=== PATIENT | female | born 1970 | race Caucasian/White ===

== ENCOUNTER 2016-07-02 13:16 | Emergency (ER) | payer MEDICAID, OTHER ==
[~2016-07-02] VITALS: Ht 152.4 cm; Wt 84.0 kg
[2016-07-02 13:32] VITALS: Ht 152.4 cm; Wt 84.0 kg
[2016-07-02] MEDS ORDERED: KETOROLAC 60 MG INJ IM STA (14:24)
--- NOTE | 2016-07-02 14:57 | ERD ---
ER Documentation Chief Complaint Date/Time DATE: 07/02/16 TIME: 14:54 Chief Complaint dizziness, nausea x 1 week; right foot pain HPI [age]-year-old female complaining of dizziness, headache, and nausea 1 week. Described dizziness as a spinning-like sensation, worse when she is trying to standing up. She had vomited once this morning. The headache is in the bilateral temporal region, sharp. Patient reports never having headache before. She has blurred vision and photophobia. Patient also reports right leg pain 1 month. Currently the pain is localized in her right knee, painful when walking. Denies falls or injuries. Patient reports the pain is gradual onset, getting worse since she has gained some weight in the last 2 years. She having trouble walking because of pain. Patient reports sensation of catching at her right knee. In addition, patient reports right calf swollen red and hot to touch at times. Denies fever or chills. Denies shortness of breath. Denies unilateral numbness or weakness. ROS All systems reviewed and are negative except as per history of present illness. Medications Home Meds Active Scripts Meclizine Hcl* (Antivert*) 12.5 Mg Tab, 12.5 MG PO Q6H Y for DIZZINESS, #20 TAB Prov:LEANDRA MCGINNIS. NUCLEAR TECHNICIAN 07/02/16 Acetaminophen* (Tylophen*) 500 Mg Capsule, 1 CAP PO Q6H Y for PAIN AND OR ELEVATED TEMP, #20 CAP Prov:LEANRDA MCGINNIS. NUCLEAR TECHNICIAN 07/02/16 Allergies Allergies: Coded Allergies: No Known Allergy (Verified Allergy, Unknown, 10/10/10) PMhx/Soc Medical and Surgical Hx: pt denies Medical Hx, pt denies Surgical Hx Hx Alcohol Use: No Hx Substance Use: No Hx Tobacco Use: No Smoking Status: Unknown if ever smoked Physical Exam Vitals Vital Signs Date Time Temp Pulse Resp B/P Pulse Ox O2 Delivery O2 Flow Rate FiO2 07/02/16 16:20 98.1 78 18 126/66 99 Room Air 07/02/16 13:32 98.8 80 18 119/60 99 Physical Exam General impression: Well-developed, well-nourished. Alert, oriented, in no acute distress Head: Normocephalic, atraumatic. Eyes: PERRL, EOM normal. Sclerae are normal. Conjunctiva not injected. Neck: Supple, nontender. No lymphadenopathy. No nuchal rigidity. Respiration: Normal respiratory effort. Lungs clear to auscultate bilaterally. No wheezes, rales or rhonchi. Cardiovascular: Regular rate and rhythm. No murmurs or extra heart sounds. Abdomen: Abdomen normal to inspection. Nontender. No masses or organomegaly. Bowel sounds normal. Back: Normal to inspection. No midline spine tenderness. No CVA tenderness. Extremities: Extremities normal to inspection, nontender. ROM normal. Neuro: Mental status normal, speech normal. MEDICAL ACCOUNTS RECEIVABLE SPECIALIST II-XII intact. Normal sensation and strength in all 4 extremities. No focal weakness noted. Skin: Normal turgor. No rash or lesions. Psych: Normal mood and affect. Results 24 hrs Current Medications Medications (Trade) Dose Ordered Sig/Peace Route PRN Reason Start Time Stop Time Status Last Admin Dose Admin Ketorolac Tromethamine (Toradol) 60 mg ONCE STAT IM 07/02/16 14:24 07/02/16 14:28 DC 07/02/16 15:27 PROCEDURE: CT Head without. CLINICAL INDICATION: Headache, dizziness. TECHNIQUE: The study was performed utilizing a multi-slice, multidetector CT scanner. Direct spiral 1 mm axial sections were obtained through the head without the use of intravenous contrast material. 1 or more of the following dose reduction techniques were utilized: Automated exposure control, adjustment of the mA and/or kV according to patient's size, iterative reconstruction technique. Coronal and sagittal reformations were obtained. The images were reviewed on a PACS workstation. RADIATION DOSE: CTDIvol: 44.3 mGy DLP: 630.2 mGy-cm COMPARISON: No prior studies are available for comparison. FINDINGS: There is no intracranial hemorrhage, extra-axial fluid collection, mass lesion, midline shift or hydrocephalus. The ventricles, sulci and cisterns are within normal limits. The white matter is unremarkable. The de santiago-white matter differentiation is preserved. The basal cisterns are patent. The midline structures are intact. The orbits, calvarium and extracranial soft tissues are normal in appearance. The visualized paranasal sinuses, mastoid air cells and middle ear cavities are normally aerated. There is pneumatization of the bilateral petrous apices without evidence of inflammatory changes, normal variant. IMPRESSION: 1. No acute intracranial abnormality. No intracranial hemorrhage, extra-axial fluid collection, mass lesion or hydrocephalous. RPTAT: DD .Du Castro MD, MD Date Time Electronically viewed and signed by .Du Castro MD, MD on 07/02/2016 15: 52 .S/ CC: LEANDRA MCGINNIS NUCLEAR TECHNICIAN PROCEDURE: Right knee x-ray CLINICAL INDICATION: right knee pain x 1 month TECHNIQUE: AP, lateral, and oblique views of the knee were obtained. COMPARISON: None FINDINGS: No acute fracture or dislocation is seen. There is normal mineralization. Mild spurring is noted at the superior pole of the patella. There is mild narrowing of the medial compartment. There is no joint effusion. There is no significant soft tissue swelling. 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 RPTAT: EE Physician Ramya Date Time Electronically viewed and signed by Physician Ramya on 07/02/2016 15:21 RA/ CC: LEANDRA MCGINNIS NUCLEAR TECHNICIAN PROCEDURE: US DVT. CLINICAL INDICATION: Right lower extremity pain. TECHNIQUE: Multiple longitudinal and transverse images of the right lower extremity veins were obtained with de asntiago scale and color Doppler imaging. 2D grayscale measurements with compression, color Doppler flow, and augmentation was performed. The calf veins were interrogated as well. COMPARISON: No prior studies are available for comparison. FINDINGS: The right common femoral, superficial femoral and popliteal veins are normally compressible throughout. Color flow demonstrates normal filling of the vessel. Normal waveforms are visualized and there is normal response to augmentation. IMPRESSION: 1. No evidence of a deep vein thrombosis involving the right lower extremity. RPTAT: [facility] Jayesh Bullock Physician Date Time Electronically viewed and signed by Jayesh Bullock Physician on 07/02/2016 15: 05 JH/ CC: LEANDRA MCGINNIS NUCLEAR TECHNICIAN Procedures/MDM 45-year-old female presented ED with headache and vertigo 1 week. Patient states that this is her first ever headache. CT brain without IV contrast was obtained. CT brain was negative for any intracranial abnormalities. Toradol 60 mg IM given to the patient in the ED for pain. Patient reports improvement of headache after Toradol. Patient vertigo is likely benign positional vertigo. I doubt Mnire's disease, acoustic neuroma, vertebral artery dissection, or stroke. Patient also complaining of right knee pain 1 month and right calf erythematous and swollen at times. Doppler ultrasound of the right lower leg is negative for DVT. X-ray right knee shows mild degenerative changes, no fractures or dislocations. Patient was informed of the imaging results. Patient appears well, stable for discharge and outpatient management. Medical decision making shared with patient and family. Education provided to patient and family. Patient and family expressed understanding of the plan. Medications on discharge: Ibuprofen, meclizine. Follow-up: Primary care provider in 2-3 days or return to ED if worse. LEANDRA MCGINNIS NP Jul 02, 2016 14:57
--- NOTE | 2016-07-02 15:06 | RADRPT ---
PROCEDURE: US DVT. CLINICAL INDICATION: Right lower extremity pain. TECHNIQUE: Multiple longitudinal and transverse images of the right lower extremity veins were obt ained with de santiago scale and color Doppler imaging. 2D grayscale measurements with compression, color Doppler flow, and augmentation was performed. The calf veins were interrogated as well. COMPARISON: No prior studies are available for comparison. FINDINGS: The right common femoral, superficial femoral and popliteal veins are normally compressible througho ut. Color flow demonstrates normal filling of the vessel. Normal waveforms are visualized and ther e is normal response to augmentation. IMPRESSION: 1. No evidence of a deep vein thrombosis involving the right lower extremity. RPTAT: [facility] Physician Jose D Date Time Electronically viewed and signed by Physician Jose D on 07/02/2016 15:05 /
--- NOTE | 2016-07-02 15:22 | RADRPT ---
PROCEDURE: Right knee x-ray CLINICAL INDICATION: right knee pain x 1 month TECHNIQUE: AP, lateral, and oblique views of the knee were obtained. COMPARISON: None FINDINGS: No acute fracture or dislocation is seen. There is normal mineralization. Mild spurring is noted at the superior pole of the patella. There is mild narrowing of the medial c ompartment. There is no joint effusion. There is no significant soft tissue swelling. 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 RPTAT: EE Physician Ramya Date Time Electronically viewed and signed by Sherman Morris Physician on 07/02/2016 15:21 /
--- NOTE | 2016-07-02 15:52 | RADRPT ---
PROCEDURE: CT Head without. CLINICAL INDICATION: Headache, dizziness. TECHNIQUE: The study was performed utilizing a multi-slice, multidetector CT scanner. Direct spira l 1 mm axial sections were obtained through the head without the use of intravenous contrast materia l. 1 or more of the following dose reduction techniques were utilized: Automated exposure control, adjustment of the mA and/or kV according to patient's size, iterative reconstruction technique. Co howard and sagittal reformations were obtained. The images were reviewed on a PACS workstation. RADIATION DOSE: CTDIvol: 44.3 mGyDLP: 630.2 mGy-cm COMPARISON: No prior studies are available for comparison. FINDINGS: There is no intracranial hemorrhage, extra-axial fluid collection, mass lesion, midline shift or hyd rocephalus. The ventricles, sulci and cisterns are within normal limits. The white matter is unrem arkable. The de santiago-white matter differentiation is preserved. The basal cisterns are patent. The m idline structures are intact. The orbits, calvarium and extracranial soft tissues are normal in pierre earance. The visualized paranasal sinuses, mastoid air cells and middle ear cavities are normally ae rated. There is pneumatization of the bilateral petrous apices without evidence of inflammatory maki ges, normal variant. IMPRESSION: 1. No acute intracranial abnormality. No intracranial hemorrhage, extra-axial fluid collection, ma ss lesion or hydrocephalous. RPTAT: DD .Du Castro MD, Date Time Electronically viewed and signed by .Du Castro MD, on 07/02/2016 15:52 .S/
[2016-07-02] MEDS ORDERED: MECL12.574 PO (16:07)
[2016-07-02] MEDS ORDERED: ACET500C5 PO (16:07)
[2016-07-02 16:20] VITALS: BP 126/66; PULSE 78; RESP 18; TEMP 98.1
== END 2016-07-02 16:21 | disposition home or self-care (01) ==
LOC: FTE 13:16
DX: R42 Dizziness and giddiness (principal); R51 Headache; M25.561 Pain in right knee; R11.0 Nausea
CPT/HCPCS: 70450; 73562; 93971; J1885; 96372

== ENCOUNTER 2018-11-06 19:20 | Emergency (ER) | payer OTHER ==
[~2018-11-06] VITALS: Ht 157.5 cm; Wt 84.2 kg
[~2018-11-06 19:20] MED LIST: ACET500C5 PO; DIAZ5TAB PO; IBUP800T48 PO; MECL12.574 PO
[2018-11-06 19:21] VITALS: Ht 157.5 cm; Wt 84.2 kg
[2018-11-06] MEDS ORDERED: KETOROLAC 30 MG INJ IM STA (19:37)
[2018-11-06] MEDS ORDERED: DIAZEPAM 5 MG TAB PO ONE (20:00)
[2018-11-06 21:19] VITALS: BP 128/75; PULSE 78; RESP 16
== END 2018-11-06 21:21 | disposition home or self-care (01) ==
LOC: E/R 19:20
DX: M54.16 Radiculopathy, lumbar region (principal)
CPT/HCPCS: 81003; 81025; 96372; J1885; Z7502; Z7610